=== PATIENT | male | born 1995 ===

== ENCOUNTER 2020-06-21 07:38 | Day surgery (SDC) | payer OTHER ==
[2020-06-21] VITALS (8 sets, daily range): BP systolic 116–141; BP diastolic 69–89
[~2020-06-21] VITALS: Ht 172.7 cm; Wt 110.0 kg
[~2020-06-21 07:38] MED LIST: BUSP10TA11 PO; HYDR-3686 PO; MIRT-67 PO; ceFAZolin 2gm in dextrose, iso 50 ML IV ONE; famotidine 20mg tablet PO ONE; ringers solution, lacted 1,000 ML IV SCH
[2020-06-21] MEDS ORDERED: cloNIDine hcl/PF 100mcg/ml inj ONE (08:13)
[2020-06-21] MEDS ORDERED: ceFAZolin 1000mg inj ONE (11:00)
[2020-06-21] MEDS ORDERED: epiNEPHrine 1 mg/ml inj ONE (11:00)
[2020-06-21] MEDS ORDERED: ROPIVAcaine 0.5% (5mg/ml) 30ml vial ONE ×2 (11:00→11:22)
[2020-06-21] MEDS ORDERED: fentaNYL/PF 50MCG/1 ML 2ML syringe ONE (11:16)
[2020-06-21] MEDS ORDERED: sevoflurane 250ml liquid IH ONE (11:16)
[2020-06-21] MEDS ORDERED: midazolam 2 mg/2 ml injection ONE (11:16)
[2020-06-21] MEDS ORDERED: propofol inj 20 ML IV ONE (11:17)
[2020-06-21] MEDS ORDERED: ringers solution, lacted 1,000 ML IV SCH (12:15)
[2020-06-21] MEDS ORDERED: morphine 2 MG/ML inj. syringe IV PRN (12:15)
[2020-06-21] MEDS ORDERED: ondansetron/PF 4mg/2ml inj IV PRN (12:15)
[2020-06-21] MEDS ORDERED: proCHLORperazine 10 MG/2 ml inj IV PRN (12:15)
[2020-06-21] MEDS ORDERED: morphine 4 MG/ML inj SYRINge IV PRN (12:15)
[2020-06-21] MEDS ORDERED: meperidine/PF 25mg/ml syringe IV PRN ×2 (12:15)
--- NOTE | 2020-06-21 13:01 | NUR ---
Received from OR via [facility] , accompanied by Anesthesiologist LISA and report given by Anesthesiolgist. PATIENT WITH 20G PIV IN RIGHT HAND RUNNING LR AT 100. RIGHT KNEE DRESSING IS CDI WITH BRACE ON. + DORSALIS PEDIS PRESENT AND VSS. 10L MASK ON WITH 100% SATURATIONS. Addendum: 06/21/20 at 1311 by Rodrigo Guthrie RN, RN Amended: Links added.
[2020-06-21] MEDS: meperidine/PF 25mg/ml syringe IV PRN ×2 (13:31→13:43)
[2020-06-21] MEDS ORDERED: ketorolac trometh. 30mg/ml inj. IV ONE (13:55)
[2020-06-21] MEDS ORDERED: HYDROcodone/acetaminophen 10/325mg tab PO ONE (13:55)
--- NOTE | 2020-06-21 14:11 | NUR ---
I HAVE REVIEWED D/C INSTRUCTIONS WITH PATIENT AND FAMILY AND THEY HAVE VERBALIZED UNDERSTANDING. PATIENT D/C HOME WITH ALL BELONGINGS AND FAMILY GAVE TRANSPORT HOME.OUT VIA WHEELCHAIR WITH 2 GAURDS WHO DRESSED, LOADED AND TRANSPORTED PATIENT BACK TO FACILITY. ENCOURAGED PT TO ELEVATE RIGHT KNEE ON SEAT WITH BACK AGAINST WALL. Addendum: 06/21/20 at 1541 by Rodrigo Guthrie RN, RN Amended: Links added.
== END 2020-06-21 14:11 | disposition home or self-care (01) ==
LOC: PAS 07:38 → EEVIPCON 11:00 → PAS 14:11
PROVIDERS: ATTEND Orthopaedic Surgery
DX: S83.511A Sprain of anterior cruciate ligament of right knee, initial encounter (principal); S83.281A Other tear of lateral meniscus, current injury, right knee, initial encounter; Z87.891 Personal history of nicotine dependence; Z98.890 Other specified postprocedural states; F41.8 Other specified anxiety disorders; Z79.899 Other long term (current) drug therapy; G89.18 Other acute postprocedural pain; X58.XXXA Exposure to other specified factors, initial encounter; Y93.89 Activity, other specified; Y99.8 Other external cause status; Y92.89 Other specified places as the place of occurrence of the external cause
CPT/HCPCS: 29881; 29888; 64447; 76942; 82948; C1713; C1762; J0171; J0690; J0735; J1885; J2175; J2250; J2270; J2704; J3010; J7120; L1832; A4215; A4618; A6449; A7000; J2795